=== PATIENT | female | born 1975 | race Caucasian/White ===

== ENCOUNTER 2016-06-24 13:12 | Emergency (ER) | payer MEDICARE, MEDICAID ==
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
[2016-06-24] MEDS ORDERED: PROMETHAZINE HCL 25 MG/ML VIAL IM ONE ×2 (13:47→16:42)
[2016-06-24] MEDS ORDERED: HYDROMORPHONE HCL 2 MG/ML VIAL IM ONE (13:47)
== END 2016-06-24 16:54 | disposition home or self-care (01) ==
LOC: ER 13:12
DX: G43.909 Migraine, unspecified, not intractable, without status migrainosus (principal); R11.0 Nausea; H53.149 Visual discomfort, unspecified
CPT/HCPCS: 99283 ×2; 96372; J1170; J2550

== ENCOUNTER 2016-09-02 18:28 | Emergency (ER) | payer MEDICARE, MEDICAID ==
[2016-09-02] MEDS: ONDANSETRON 4 MG ODT TABLET SL ONE (20:24)
[2016-09-02] MEDS: IBUPROFEN 600 MG TABLET PO ONE (20:24)
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
[2016-09-02 20:43] LABS: BASO % 0.3 % (0-6); EOS % 4.6 % (0-6); GRAN % 48.5 % (47-80); HEMATOCRIT 40.4 % (35.0-47.0); HEMOGLOBIN 12.8 gm/dl (11.6-16.0); LYMPH % 38.5 % (16-45); MEAN CELL VOLUME 92.4 fl (81-97); MEAN CORPUSCULAR HEMOGLOBIN 29.3 pg (27-33); MEAN CORPUSCULAR HGB CONC 31.7 g/dl (32-36); MEAN PLATELET VOLUME 10.5 fl (7.4-10.4); MONO % 8.1 % (0-9); PLATELET COUNT 250 K/uL (130-400); RED BLOOD COUNT 4.37 M/uL (3.80-5.40); RED CELL DISTRIBUTION WIDTH 12.4 % (11.5-14.5); URINE APPEARANCE CLEAR; URINE BILIRUBIN NEGATIVE (NEGATIVE); URINE BLOOD LARGE (NEGATIVE); URINE COLOR YELLOW; URINE GLUCOSE (UA) NEGATIVE (NEGATIVE); URINE KETONE NEGATIVE (NEGATIVE); URINE LEUKOCYTE ESTERASE NEGATIVE (NEGATIVE); URINE NITRITE NEGATIVE (NEGATIVE); URINE PROTEIN NEGATIVE (NEGATIVE); URINE UROBILINOGEN 0.2 E.U./dL (0.20 - 1.00); WHITE BLOOD COUNT W/O DIFF 7.5 K/uL (4.2-12.2)
[2016-09-02 20:53] LABS: URINE EPITHELIAL CELLS 0 - 2 (FEW); URINE RBC 21 - 35 (NONE SEEN); URINE WBC 0 - 2 (0-2/hpf)
[2016-09-02 20:54] LABS: URINE CALCIUM OXALATE CRYSTALS 3+ /hpf
[2016-09-02 20:56] LABS: ALBUMIN 3.9 gm/dL (3.5-5.0); ALKALINE PHOSPHATASE 73 U/L (38-126); ALT/SGPT 23 U/L (9-52); ANION GAP 8.5 (7-16); AST/SGOT 15 U/L (14-36); BILIRUBIN,TOTAL 0.67 mg/dL (0.2-1.3); BLOOD UREA NITROGEN 18 mg/dL (7-17); CARBON DIOXIDE 28.5 mmol/L (22-30); CREATININE 0.8 mg/dL (0.52-1.04); EST GLOMERULAR FILTRATION RATE > 60 ml/min; GLUCOSE,RANDOM 104 mg/dL (70-110); LIPASE 50 U/L (23-300); TOTAL PROTEIN 7.2 gm/dL (6.3-8.2)
[2016-09-02 21:18] LABS: URINE APPEARANCE CLEAR; URINE BILIRUBIN SMALL (NEGATIVE); URINE BLOOD LARGE (NEGATIVE); URINE COLOR YELLOW; URINE GLUCOSE (UA) NEGATIVE (NEGATIVE); URINE KETONE NEGATIVE (NEGATIVE); URINE LEUKOCYTE ESTERASE NEGATIVE (NEGATIVE); URINE NITRITE NEGATIVE (NEGATIVE); URINE PROTEIN TRACE (NEGATIVE); URINE UROBILINOGEN 0.2 E.U./dL (0.20 - 1.00)
== END 2016-09-02 22:00 | disposition home or self-care (01) ==
LOC: ER 18:28
DX: R10.31 Right lower quadrant pain (principal); R31.29 Other microscopic hematuria; R11.0 Nausea
CPT/HCPCS: 80048; 80076; 81001; 81003; 83690; 85025; 99283; 99284

== ENCOUNTER 2017-02-23 12:44 | Emergency (ER) | payer MEDICARE, MEDICAID ==
[2017-02-23] MEDS ORDERED: 0.9 % SODIUM CHLORIDE 1,000 ML BAG IV ONE ×2 (13:06→15:21)
[2017-02-23] MEDS ORDERED: PROMETHAZINE HCL 12.5 MG in 0.9 % SODIUM CHLORIDE 100ML 100 ML IVPB ONE (13:07)
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
[2017-02-23 13:57] LABS: BASO % 0.3 % (0-6); EOS % 2.9 % (0-6); GRAN % 53.1 % (47-80); HEMATOCRIT 38.3 % (35.0-47.0); HEMOGLOBIN 12.4 gm/dl (11.6-16.0); LYMPH % 34.6 % (16-45); MEAN CELL VOLUME 87.8 fl (81-97); MEAN CORPUSCULAR HEMOGLOBIN 28.4 pg (27-33); MEAN CORPUSCULAR HGB CONC 32.4 g/dl (32-36); MEAN PLATELET VOLUME 10.7 fl (7.4-10.4); MONO % 9.1 % (0-9); PLATELET COUNT 251 K/uL (130-400); RED BLOOD COUNT 4.36 M/uL (3.80-5.40); RED CELL DISTRIBUTION WIDTH 12.4 % (11.5-14.5); WHITE BLOOD COUNT W/O DIFF 5.9 K/uL (4.2-12.2)
[2017-02-23 14:14] LABS: ALB/GLOB RATIO 1.1 (1.1-1.8); ALBUMIN 3.4 g/dL (4.0-5.0); ALKALINE PHOSPHATASE 52 U/L (35-104); ALT/SGPT 8 U/L (<33); AST/SGOT 13 U/L (10.0-35.0); BLOOD UREA NITROGEN 12 mg/dL (6-20); CREATININE 0.6 mg/dL (0.5-0.9); EST GLOMERULAR FILTRATION RATE > 60 mL/min; GLUCOSE,RANDOM 99 mg/dL (74-109); LIPASE 13 U/L (13-60); TOTAL PROTEIN 6.6 g/dL (6.6-8.7)
[2017-02-23 15:36] LABS: URINE APPEARANCE SL CLOUDY; URINE BILIRUBIN NEGATIVE (NEGATIVE); URINE BLOOD TRACE-I (NEGATIVE); URINE COLOR YELLOW; URINE GLUCOSE (UA) NEGATIVE (NEGATIVE); URINE KETONE NEGATIVE (NEGATIVE); URINE LEUKOCYTE ESTERASE SMALL (NEGATIVE); URINE NITRITE NEGATIVE (NEGATIVE); URINE PROTEIN NEGATIVE (NEGATIVE); URINE UROBILINOGEN 0.2 E.U./dL (0.20 - 1.00)
[2017-02-23 15:44] LABS: URINE RBC 0 - 2 (NONE SEEN)
[2017-02-23 16:23] LABS: URINE APPEARANCE CLEAR; URINE BILIRUBIN NEGATIVE (NEGATIVE); URINE COLOR YELLOW; URINE GLUCOSE (UA) NEGATIVE (NEGATIVE); URINE KETONE NEGATIVE (NEGATIVE)
[2017-02-23 16:24] LABS: URINE BLOOD NEGATIVE (NEGATIVE); URINE NITRITE NEGATIVE (NEGATIVE); URINE PROTEIN NEGATIVE (NEGATIVE); URINE UROBILINOGEN 0.2 E.U./dL (0.20 - 1.00)
[2017-02-23 16:26] LABS: URINE LEUKOCYTE ESTERASE NEGATIVE (NEGATIVE)
--- NOTE | 2017-02-25 08:21 | CT SCAN REPORT ---
EXAM: CT OF THE ABDOMEN AND PELVIS WITHOUT CONTRAST HISTORY: ABDOMEN AND BILATERAL FLANK PAIN WITH DYSURIA. FEVER AND VOMITING. PRIOR CHOLECYSTECTOMY AND HYSTERECTOMY. TECHNIQUE: Thin collimation helical CT examination of the abdomen and pelvis was performed without oral or intravenous contrast administration. Lack of oral and IV contrast utilization limits evaluation of the solid viscera and bowel respectively. Comparison: CT of the abdomen and pelvis without contrast dated 12/24/15. FINDINGS: Increased image noise due to large body habitus also limits evaluation. The lung bases are clear and there is no pleural or pericardial effusion. The heart is not enlarged. No focal abnormality is demonstrated within the liver, spleen, pancreas, nor adrenal glands. The gallbladder is surgically absent and no biliary ductal dilatation is seen. The kidneys are normal in size, position, and are smoothly marginated. There are questionably four or five tiny nonobstructing calculi within the right kidney with the largest measuring approximately 2-3 mm. There are a couple tiny 2 mm nonobstructing calculi within the left kidney, one in the mid to lower level and the other in the lower pole. No other nephrolithiasis nor definite renal mass. The renal collecting systems are not dilated. No definite ureteral calculus. No intrinsic urinary bladder abnormality. Small round calcifications in the inferior pelvis are redemonstrated consistent with phleboliths. The uterus is surgically absent as are the ovaries. No new pelvic mass, lymphadenopathy, or free pelvic fluid. No gross bowel dilatation nor bowel wall thickening. The appendix is visualized and normal in appearance. There is no evidence of aneurysm of the abdominal aorta nor iliac arteries. No intraabdominal nor retroperitoneal lymphadenopathy. There are mild degenerative changes scattered throughout the visualized spine. IMPRESSION: 1. EXAM LIMITED BY INCREASED IMAGE NOISE DUE TO LARGE BODY HABITUS. 2. BILATERAL NEPHROLITHIASIS WITHOUT EVIDENCE OF OBSTRUCTIVE UROPATHY. 3. NO DEFINITE CT EVIDENCE OF AN ACUTE INTRAABDOMINAL NOR INTRAPELVIC PROCESS. 4. STATUS POST CHOLECYSTECTOMY AND HYSTERECTOMY. 5. NOT MENTIONED ABOVE IS APPARENT BORDERLINE TO MILD WALL THICKENING OF THE DISTAL ESOPHAGUS LIKELY DUE TO INCOMPLETE DISTENTION RATHER THAN A MUCOSAL ABNORMALITY. JOB NUMBER: [id number] [facility]
== END 2017-02-23 16:58 | disposition home or self-care (01) ==
LOC: ER 12:44
DX: R10.32 Left lower quadrant pain (principal); R11.2 Nausea with vomiting, unspecified; M54.2 Cervicalgia; R34 Anuria and oliguria; Z79.899 Other long term (current) drug therapy
CPT/HCPCS: 99284 ×2; 96374; 83690; 85025; 80053; 81001; 81003; 74176; G0480; 80329; J2550; J7030

== ENCOUNTER 2017-10-03 11:43 | Emergency (ER) | payer MEDICARE, OTHER ==
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
[2017-10-03] MEDS ORDERED: Diph,Pert(Acell),Tet Vac 0.5 ML SYR IM ONE (12:12)
== END 2017-10-03 13:16 | disposition home or self-care (01) ==
LOC: ER 11:43
DX: S61.012A Laceration without foreign body of left thumb without damage to nail, initial encounter (principal); W45.8XXA Other foreign body or object entering through skin, initial encounter; Y93.G1 Activity, food preparation and clean up; Y92.511 Restaurant or cafe as the place of occurrence of the external cause; Y99.0 Civilian activity done for income or pay; Z87.891 Personal history of nicotine dependence
CPT/HCPCS: 12001; 90715; 96372; 99283

== ENCOUNTER 2017-10-25 11:02 | Emergency (ER) | payer MEDICARE, OTHER ==
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
[2017-10-25] MEDS: LORAZEPAM 2 MG/ML VIAL IV ONE (11:48)
[2017-10-25] MEDS: 0.9 % SODIUM CHLORIDE 1,000 ML BAG IV ONE (11:49)
[2017-10-25] MEDS: PROMETHAZINE HCL 12.5 MG in 0.9 % SODIUM CHLORIDE 100ML 100 ML IVPB ONE (11:49)
[2017-10-25] MEDS: METOCLOPRAMIDE HCL 10 MG/2 ML VIAL IVP ONE (11:49)
[2017-10-25 12:50] LABS: BLOOD UREA NITROGEN 13 mg/dL (6-20)
[2017-10-25 12:51] LABS: CREATININE 0.6 mg/dL (0.5-0.9); EST GLOMERULAR FILTRATION RATE > 60 mL/min
[2017-10-25 12:53] LABS: GLUCOSE,RANDOM 106 mg/dL (74-109)
[2017-10-25 12:56] LABS: CREATINE PHOSPHOKINASE 64 U/L (26-192)
[2017-10-25 13:10] LABS: BASO % 0.2 % (0-6); GRAN % 64.1 % (47-80); HEMATOCRIT 42.1 % (35.0-47.0); LYMPH % 26.8 % (16-45); MEAN CORPUSCULAR HGB CONC 30.9 g/dl (32-36); MEAN PLATELET VOLUME 10.9 fl (7.4-10.4); MONO % 5.9 % (0-9); PLATELET COUNT 222 K/uL (130-400); RED BLOOD COUNT 4.48 M/uL (3.80-5.40); RED CELL DISTRIBUTION WIDTH 13.1 % (11.5-14.5); WHITE BLOOD COUNT W/O DIFF 5.6 K/uL (4.2-12.2)
[2017-10-25 13:27] LABS: CKMB < 1.0 ng/mL (<3.77)
[2017-10-25] MEDS: ASPIRIN 325 MG TABLET PO ONE (13:41)
[2017-10-25] MEDS: METHYLPREDNISOLONE PF 125MG/VIAL IVP ONE (13:41)
--- NOTE | 2017-10-26 11:04 | CT SCAN REPORT ---
EXAM: CT OF THE BRAIN HISTORY: MIGRAINE. TECHNIQUE: CT of the brain without contrast was obtained. Comparison: Prior CT of the brain 05/19/16. FINDINGS: The globes are intact. The paranasal sinuses and mastoid air cells are unremarkable. No displaced or depressed skull fracture. No intra or extraaxial hemorrhage. CT is limited for evaluation of acute infarct. No CT evidence for large or territorial acute infarct. No mass or midline shift. IMPRESSION: NEGATIVE EXAMINATION. JOB NUMBER: [id number] [facility]
--- NOTE | 2017-10-26 11:06 | RADIOLOGY REPORT ---
EXAM: CHEST, TWO VIEWS HISTORY: DIZZINESS. TECHNIQUE: Frontal and lateral views of the chest were obtained. Comparison: Prior chest 08/15/15. FINDINGS: The heart size is stable. Mild elevation of the right hemidiaphragm. The lungs are clear. No pneumothorax. IMPRESSION: NO ACUTE CARDIOPULMONARY PROCESS. JOB NUMBER: [id number] [facility]
== END 2017-10-25 14:19 | disposition left against medical advice (07) ==
LOC: ER 11:02
DX: G43.909 Migraine, unspecified, not intractable, without status migrainosus (principal); R11.10 Vomiting, unspecified; Z87.891 Personal history of nicotine dependence; E03.9 Hypothyroidism, unspecified; R29.810 Facial weakness
CPT/HCPCS: 70450; 71046; 80048; 82550; 82553; 84484; 85025; 93005; 93010; 96365; 96375; 99284; J2550; J2765; J2930; J7030

== ENCOUNTER 2017-12-21 10:32 | Observation (INO) | payer MEDICARE ==
[2017-12-21] MEDS ORDERED: ONDANSETRON HCL IV 4 MG/2 ML VIAL IV ONE (10:59)
[2017-12-21] MEDS ORDERED: 0.9 % SODIUM CHLORIDE 1,000 ML BAG IV ONE (10:59)
[2017-12-21 11:29] LABS: URINE APPEARANCE CLEAR; URINE BILIRUBIN MODERATE (NEGATIVE); URINE BLOOD TRACE-I (NEGATIVE); URINE COLOR YELLOW; URINE GLUCOSE (UA) NEGATIVE (NEGATIVE); URINE KETONE 15 mg/dL (NEGATIVE); URINE LEUKOCYTE ESTERASE TRACE (NEGATIVE); URINE NITRITE NEGATIVE (NEGATIVE)
[2017-12-21 11:38] LABS: URINE MUCUS LIGHT; URINE RBC 0 - 2 (NONE SEEN); URINE WBC 0 - 2 (0-2/hpf)
[2017-12-21 11:57] LABS: CRYPTOSPORIDIUM PARVUM ANTIGEN NOT DETECTED (NOT DETECT); GIARDIA LAMBLIA ANTIGEN NOT DETECTED (NOT DETECT); ROTOVIRUS NOT DETECTED (NOT DETECT)
[2017-12-21 12:33] LABS: HEMATOCRIT 41.1 % (35.0-47.0); MEAN CELL VOLUME 90.9 fl (81-97); MEAN CORPUSCULAR HEMOGLOBIN 28.8 pg (27-33); MEAN CORPUSCULAR HGB CONC 31.6 g/dl (32-36); MEAN PLATELET VOLUME 11.1 fl (7.4-10.4); PLATELET COUNT 147 K/uL (130-400); RED BLOOD COUNT 4.52 M/uL (3.80-5.40); WHITE BLOOD COUNT W/O DIFF 7.4 K/uL (4.2-12.2)
[2017-12-21 12:47] LABS: BLOOD UREA NITROGEN 14 mg/dL (6-20); CREATININE 0.9 mg/dL (0.5-0.9); EST GLOMERULAR FILTRATION RATE > 60 mL/min; PLATELET ESTIMATE NORMAL (NORMAL)
[2017-12-21 12:48] LABS: TOTAL PROTEIN 6.9 g/dL (6.6-8.7)
[2017-12-21 12:50] LABS: GLUCOSE,RANDOM 93 mg/dL (74-109)
[2017-12-21 12:53] LABS: ALBUMIN 3.4 g/dL (4.0-5.0); ALKALINE PHOSPHATASE 48 U/L (35-104); ALT/SGPT 10 U/L (<33); AST/SGOT 18 U/L (10.0-35.0); LIPASE 14 U/L (13-60)
[2017-12-21] MEDS ORDERED: POTASSIUM CHLORIDE 20 MEQ TABLET PO ONE (13:01)
[2017-12-21] MEDS ORDERED: METHYLPREDNISOLONE PF 125MG/VIAL IVP ONE (13:06)
[2017-12-21] MEDS ORDERED: HYDROCODONE/APAP 5/325MG TABLET PO ONE (13:11)
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
[2017-12-21] MEDS ORDERED: ACETAMINOPHEN 1,000 MG/100 ML BTL IVPB ONE (13:14)
[2017-12-21 13:26] LABS: MOLECULAR C DIFF TOXIN SCREEN NOT DETECTED (NOT DETECT)
[2017-12-21] MEDS ORDERED: CLINDAMYCIN 600MG/50ML PREMIX 600 MG/50 ML BAG IVPB ONE (14:23)
[2017-12-21] MEDS ORDERED: ACETAZOLAMIDE 125 MG PO PRN (16:23)
[2017-12-21] MEDS ORDERED: ONDANSETRON HCL IV 4 MG/2 ML VIAL IVP PRN (16:23)
[2017-12-21] MEDS ORDERED: ALPRAZOLAM 0.25 MG TABLET PO SCH (16:23)
[2017-12-21] MEDS ORDERED: FLUOXETINE HCL 40 MG PO SCH (16:23)
[2017-12-21] MEDS ORDERED: ACETAMINOPHEN 500 MG TABLET PO PRN (16:23)
[2017-12-21] MEDS ORDERED: PROMETHAZINE HCL 25 MG SUPP RC PRN (16:23)
[2017-12-21] MEDS ORDERED: METHYLPREDNISOLONE PF 125MG/VIAL IVP SCH (16:23)
[2017-12-21] MEDS ORDERED: CLINDAMYCIN 600MG/50ML PREMIX 600 MG/50 ML BAG IVPB SCH (16:23)
[2017-12-21] MEDS: SOD CHLOR 0.9% WITH KCL 40MEQ 40 MEQ/1,000 ML IV.SOLN IV SCH (16:44)
[2017-12-21] MEDS: OXYCODONE/APAP 10MG-325MG TABLET PO SCH ×2 (17:17→23:15)
[2017-12-21] MEDS ORDERED: ASENAPINE MALEATE 10 MG SL SCH (22:00)
[2017-12-21] MEDS: ALPRAZOLAM 0.25 MG TABLET PO SCH (22:07)
[2017-12-21] MEDS: METHYLPREDNISOLONE PF 125MG/VIAL IVP SCH (22:09)
[2017-12-21] MEDS: CLINDAMYCIN 600MG/50ML PREMIX 600 MG/50 ML BAG IVPB SCH (22:11)
[2017-12-21] MEDS: PROPRANOLOL HCL 10 MG TABLET PO SCH (22:18)
[2017-12-22] MEDS: SOD CHLOR 0.9% WITH KCL 40MEQ 40 MEQ/1,000 ML IV.SOLN IV SCH (02:43)
[2017-12-22] MEDS: METHYLPREDNISOLONE PF 125MG/VIAL IVP SCH (05:52)
[2017-12-22] MEDS: OXYCODONE/APAP 10MG-325MG TABLET PO SCH (05:53)
[2017-12-22] MEDS: ALPRAZOLAM 0.25 MG TABLET PO SCH (05:53)
[2017-12-22] MEDS: CLINDAMYCIN 600MG/50ML PREMIX 600 MG/50 ML BAG IVPB SCH (05:58)
[2017-12-22 06:47] LABS: HEMATOCRIT 40.8 % (35.0-47.0); HEMOGLOBIN 12.9 gm/dl (11.6-16.0); MEAN CELL VOLUME 90.7 fl (81-97); MEAN CORPUSCULAR HEMOGLOBIN 28.7 pg (27-33); MEAN CORPUSCULAR HGB CONC 31.6 g/dl (32-36); MEAN PLATELET VOLUME 11.3 fl (7.4-10.4); PLATELET COUNT 163 K/uL (130-400); RED CELL DISTRIBUTION WIDTH 13.9 % (11.5-14.5); WHITE BLOOD COUNT W/O DIFF 5.6 K/uL (4.2-12.2)
[2017-12-22] MEDS ORDERED: PANTOPRAZOLE SODIUM 40 MG TABLET PO PRN (07:00)
[2017-12-22] MEDS ORDERED: LEVOTHYROXINE SODIUM 100 MCG TABLET PO SCH (07:00)
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
[2017-12-22 07:30] LABS: ALBUMIN 3.4 g/dL (4.0-5.0); ALKALINE PHOSPHATASE 48 U/L (35-104); ALT/SGPT 9 U/L (<33); AST/SGOT 13 U/L (10.0-35.0); BLOOD UREA NITROGEN 17 mg/dL (6-20); CREATININE 0.7 mg/dL (0.5-0.9); EST GLOMERULAR FILTRATION RATE > 60 mL/min; GLUCOSE,RANDOM 234 mg/dL (74-109); TOTAL PROTEIN 6.7 g/dL (6.6-8.7)
[2017-12-22] MEDS: PROPRANOLOL HCL 10 MG TABLET PO SCH (09:40)
[2017-12-22] MEDS ORDERED: FLUOXETINE HCL 20 MG CAPSULE PO SCH (10:00)
[2017-12-22] MEDS ORDERED: ENOXAPARIN 40 MG/0.4 ML SYR SQ SCH (10:00)
[2017-12-22] MEDS ORDERED: ASENAPINE MALEATE 5 MG SL SCH (10:00)
--- NOTE | 2017-12-22 10:16 | Discharge Summary ---
Providers Discharge Summary Date: 12/22/17 Date of admission: 12/21/17 16:05 Expected Date of Discharge: 12/22/17 Attending physician: KINGSLEY CHAVEZ Primary care physician: DIXIE VAUGHAN M.D. Physical Exam - Vital Signs Vital Signs: Vital Signs - Last 24 Hrs Temp Pulse Pulse Resp BP BP Pulse Ox 12/22/17 06:00 97.7 F 63 20 106/68 95 12/22/17 01:00 97.5 F L 61 20 93/54 94 L 12/21/17 21:00 82 18 12/21/17 20:46 97.7 F 82 18 114/68 95 12/21/17 18:32 96 H 18 12/21/17 16:15 98.1 F 96 H 18 111/80 99 12/21/17 14:34 99.6 F 87 16 110/42 95 12/21/17 13:08 100.2 F H 95 H 20 102/58 99 12/21/17 10:35 97.9 F 124 H 18 120/101 99 - General General Appearance: Alert, Oriented x3, Cooperative, No acute distress Limitations: No limitations - Head Head exam: Atraumatic, Normocephalic, Normal inspection - Eye Eye exam: Normal appearance, PERRL, EOMI Pupils: Normal accommodation - ENT ENT exam: Normal exam, Mucous membranes dry, Normal external ear exam, Normal orophraynx Ear exam: Normal external inspection. negative: External canal tenderness Nasal Exam: Normal inspection. negative: Discharge, Sinus tenderness Mouth exam: Normal external inspection, Tongue normal Teeth exam: Normal inspection. negative: Dental caries Throat exam: Normal inspection. negative: Tonsillar erythema, Tonsillar exudate - Neck Neck exam: Normal inspection, Full ROM. negative: Tenderness - Respiratory Respiratory exam: Normal lung sounds bilaterally. negative: Respiratory distress - Cardiovascular Cardiovascular Exam: Regular rate, Normal rhythm, Normal heart sounds Peripheral Pulses: 2+: Radial (R), Radial (L), Dorsalis Pedis (R), Dorsalis Pedis (L) - GI/Abdominal GI/Abdominal exam: Soft, Normal bowel sounds. negative: Tenderness - Rectal Rectal exam: Deferred - exam: Deferred - Extremities Extremities exam: Normal inspection, Full ROM, Normal capillary refill. negative: Pedal edema, Tenderness - Back Back exam: Reports: Normal inspection, Full ROM. Denies: Muscle spasm, Rash noted, Tenderness - Neurological Neurological exam: Alert, Normal gait, Oriented X3 - Psychiatric Psychiatric exam: Normal affect, Normal mood - Skin Skin exam: Dry, Intact, Normal color, Rash (buttocks, erythema improved, no eruptions or lesions noted), Warm Hospitalization - Hospitalization Admission Diagnosis: dehydration, vomiting , diarrhea, hypokalemia, cellulitis vs allergic rxn - Problem List/Discharge Diagnosis (1) Nausea vomiting and diarrhea Current Visit: Yes Status: Acute Base Code: R11.2 - NAUSEA WITH VOMITING, UNSPECIFIED; R19.7 - DIARRHEA, UNSPECIFIED Comment: 12/22/17: Patient presented to ED for nausea/vomiting/diarrhea and abdominal pain x 3 days -Pelvis CT negative -Stool cultures negative -BMP, CBC reviewed today, K+ improved at 4.8 -IV fluids NS with 40mEq K+ dc -Tolerating oral diet -Zofran prn (2) Cellulitis of buttock Current Visit: Yes Status: Acute Base Code: L03.317 - CELLULITIS OF BUTTOCK Comment: 12/22/17: Patient presented to ED with erythematous rash on buttocks that began 2 days ago. No known aggrivating factors, no history of cellulitis. Afebrile, WBC WNL. -Erythema improving today -Clindamycin 600mg IVPB q8h -Solumderol 60mg q8h dc (3) Dehydration Current Visit: Yes Status: Acute Base Code: E86.0 - DEHYDRATION Comment: : Dehydration due to vomiting x 3 days prior to admission -Zofran prn -IV fluids dc -Tolerating PO diet (4) Hypokalemia Current Visit: Yes Status: Acute Base Code: E87.6 - HYPOKALEMIA Comment: : Potassium in ED 3.1. Received 40mEq K+ PO and NS with 40mEq K+. -K+ 4.8 today -Advance diet as tolerated -All potassium replacements stopped (5) DVT prophylaxis Current Visit: Yes Status: Acute Base Code: [id number] - Comment: 12/22/17: Moderate risk due to hospitalization and decreased mobility -Lovenox 40mg SQ daily -Will dc upon discharge as patient will resume normal activity (6) Full code status Current Visit: Yes Status: Acute Base Code: Z78.9 - OTHER SPECIFIED HEALTH STATUS Comment: 12/22/17: Full code status this admission - Hospitalization Course Disposition: Home, Self-Care Hospital Course: 42 year old female presents to ED for complaints of vomiting and diarrhea x 3 days. She also complains of a rash she noted on her buttocks x 2 days. Patient reported generalized abdominal pain, and intermittent episodes of fever and chills. Patient continued to have episodes of diarrhea while in the ED. States she noted the rash 2 days ago which seems not to have spread or gotten worse. Reports a burning discomfort in the area. Patient's past medical history includes: cota's palsy, kidney stones, hypothyroidism, chronic migraines, gastric ulcer, chronic back pain, anxiety, and depression. ED Course: VS: Temp 100.2, HR 124, Pulse ox 99%, RR 20, BP 102/58 UA positive for protein, ketones, blood, and trace leukocytes Labs: K+ 3.1, WBC indicated left shift Stool cultures pending Pelvis CT negative for acute process Received Clindamycin IVPB and Solumedrol 120mg (cellulitis vs. allergic rxn on buttocks) PCP: Alexus 12/21/17: Patient resting comfortably in bed, A&O x 4. Patient tolerating PO medications and ice chips at this time. Reports last bowel movement was in ED. Denies abdominal pain at this time. Rash on buttocks area assessed, appears with surrounding redness and bruising, area marked. Patient reports burning sensation on area. Will continue treating with IV fluids, zofran, clindamycin, and Solumedrol. 12/22/17: Patient A&O x 4, resting comfortably on edge of bed. Patient has been tolerating oral diet. Denies nausea or vomiting, has had occasional diarrhea. Cellulitis has improved on buttocks, erythema decreased compared to yesterday. Will dc patient home on Clindamycin. Patient is scheduled to follow-up with PCP on Wednesday. Procedures: Imaging and X-Rays 12/21/17 11:08 PELVIS WO CONTRAST [CT] Stat Abnormal Labs: Abnormal Lab Results 12/21/17 12/21/17 12/21/17 Range/Units 11:25 12:34 12:34 MCHC 31.6 L (32-36) g/dl MPV 11.1 H (7.4-10.4) fl Neutrophils % 89.0 H (47-80) % Lymphocytes 10.0 L (16-45) % ESR (0-20) mm/hr Potassium 3.1 L (3.4-4.5) mmol/L Carbon Dioxide 21.0 L (22-29) mmol/L Anion Gap 18.0 H (7-16) Random Glucose (74-109) mg/dL Calcium (8.6-10.0) mg/dL Albumin 3.4 L (4.0-5.0) g/dL Albumin/Globulin Ratio 1.0 L (1.1-1.8) Urine Protein 30 mg/dl H (NEGATIVE) Urine Ketones 15 mg/dl H (NEGATIVE) Urine Bilirubin Moderate H (NEGATIVE) Ur Leukocyte Esterase Trace H (NEGATIVE) 12/21/17 12/22/17 12/22/17 Range/Units 12:34 06:21 06:21 MCHC 31.6 L (32-36) g/dl MPV 11.3 H (7.4-10.4) fl Neutrophils % 82.0 H (47-80) % Lymphocytes 12.0 L (16-45) % ESR 62 H (0-20) mm/hr Potassium 4.8 H (3.4-4.5) mmol/L Carbon Dioxide 20.0 L (22-29) mmol/L Anion Gap (7-16) Random Glucose 234 H (74-109) mg/dL Calcium 8.5 L (8.6-10.0) mg/dL Albumin 3.4 L (4.0-5.0) g/dL Albumin/Globulin Ratio 1.0 L (1.1-1.8) Urine Protein (NEGATIVE) Urine Ketones (NEGATIVE) Urine Bilirubin (NEGATIVE) Ur Leukocyte Esterase (NEGATIVE) Condition at Discharge: (2) Stable VTE Discharge VTE Reason For No Overlap Therapy: Not Indicated Discharge Medications - Discharge Medications Prescriptions: Clindamycin HCl 300 mg PO Q6H #36 capsule Nystatin 1 apply TP BID PRN #60 gm PRN Reason: yeast rash on abdomen Home Medications: Ambulatory Orders Levothyroxine Sodium [Synthroid] 300 mcg PO DAILY 09/12/13 [Last Taken 2 Days Ago ~12/19/17] Propranolol HCl [Inderal] 80 mg PO BID 09/12/13 [Last Taken 2 Days Ago ~12/19/17 ] Promethazine HCl [Phenergan Supp] 25 mg RC TID PRN 03/21/14 [Last Taken 2 Days Ago ~12/19/17] Alprazolam [Xanax] 0.5 mg PO Q8H 01/31/15 [Last Taken 2 Days Ago ~12/19/17] Acetazolamide 125 mg PO BID PRN 08/31/15 [Last Taken 2 Days Ago ~12/19/17] Cholecalciferol (Vitamin D3) [Vitamin D3] 50,000 unit PO WEEKLY 03/10/16 [Last Taken 2 Days Ago ~12/19/17] Cyanocobalamin (Vitamin B-12) [Vitamin B-12] 400 mcg PO DAILY 03/10/16 [Last Taken 2 Days Ago ~12/19/17] Asenapine Maleate [Saphris] 5 mg SL QAM 06/24/16 [Last Taken 2 Days Ago ~] Asenapine Maleate [Saphris] 10 mg SL QHS 06/24/16 [Last Taken 2 Days Ago ~] Meclizine HCl [Antivert] 25 mg PO Q8H PRN 02/23/17 [Last Taken 2 Days Ago ~12/19] Omeprazole [Prilosec] 40 mg PO DAILY 02/23/17 [Last Taken 2 Days Ago ~12/19/17] Oxycodone HCl/Acetaminophen [Percocet 10mg/325mg] 1 tab PO Q6H PRN 02/23/17 [ Last Taken 2 Days Ago ~12/19/17] Fluoxetine HCl [Prozac] 40 mg PO QD cap 08/20/17 [Last Taken 2 Days Ago ~] Clindamycin HCl 300 mg PO Q6H #36 capsule 12/22/17 [Last Taken Unknown] Nystatin 1 apply TP BID PRN #60 gm 12/22/17 [Last Taken Unknown] Discharge Plan - Discharge Instructions Activity at Discharge: Increase Activity as Tolerated Diet at Discharge: Advance to Usual Diet Additional Instructions: -Slowly advance your diet, starting with bland foods as tolerated -The antibiotic needs to be taken 4x a day for the next 9 days. Take with food to avoid upsetting your stomach. The last dose of antibiotic you received here was at 6am, so your next dose is due around noon. -Use nystatin powder as needed on the rash on your abdomen -Follow-up with Dr. Vaughan as scheduled this Wednesday Quality Measures - Quality Measures Quality Measures: Documentation of Current Medications in Medical Record, Screening for High Blood Pressure and F/U Documented - Current Medications Quality Measure: Measure #130: Documentation of Current Medications Documentation of Current Medications: <Current Medications Documented/Reviewed> [[id number]] - Blood Pressure Screening Quality Measure: Screening for High Blood Pressure and Follow-Up Documented Does Patient Have Any of the Following: Active Dx of HTN Blood Pressure Classification: Hypertensive Reading Systolic Measurement: 120 Diastolic Measurement: 101 Screening for High Blood Pressure: Patient Exclusion, Hx of HTN [G9744] - Elder Abuse Suspicion Index EASI Reference Information: Mirela BISHOP, Benjamin C, Peri D, Jus Jean-Baptiste.Development and validation of a tool to assist physicians identification of elder abuse: The Elder Abuse Suspicion Index (EASI ). Journal of Elder Abuse and Neglect, 2008; 20 (3): 276-300.
--- NOTE | 2017-12-22 12:41 | CT SCAN REPORT ---
EXAM: CT OF THE PELVIS WITHOUT CONTRAST HISTORY: RASH ENTIRE BUTTOCKS. HYSTERECTOMY. TECHNIQUE: Axial CT scan of the pelvis was performed without IV contrast. Comparison: Prior pelvic CT performed as part of an abdomen and pelvis CT dated 02/23/17. FINDINGS: The uterus is not identified consistent with the surgical history. No definite pelvic mass or adenopathy identified. No appendicitis evident. No free intraperitoneal air or free intraperitoneal fluid within the pelvis. Because of the patient's very large body habitus, lateral aspects of the soft tissues along both sides of the pelvis are not entirely included in the field of view, however, as seen, the subcutaneous tissues appear relatively unremarkable with no obvious abscess identified in the soft tissues and there is no prominent focal skin thickening identified. No abnormal air collection seen in the soft tissues. IMPRESSION: 1. POSTOP HYSTERECTOMY. 2. NONCONTRAST CT SCAN OF THE PELVIS APPEARS OTHERWISE ESSENTIALLY NEGATIVE. JOB NUMBER: [id number] MTDD
== END 2017-12-22 11:25 | disposition home or self-care (01) ==
LOC: ER 10:32 → MEDSURG 16:05
PROVIDERS: ADMIT Internal Medicine; ATTEND Internal Medicine
DX: E86.0 Dehydration (principal); E87.6 Hypokalemia; R19.7 Diarrhea, unspecified; L03.317 Cellulitis of buttock; E03.9 Hypothyroidism, unspecified; F41.8 Other specified anxiety disorders; F25.9 Schizoaffective disorder, unspecified; G51.0 Bell's palsy; H02.402 Unspecified ptosis of left eyelid; R29.810 Facial weakness; Z87.442 Personal history of urinary calculi; Z85.3 Personal history of malignant neoplasm of breast; Z87.891 Personal history of nicotine dependence
CPT/HCPCS: 72192; 80053; 81001; 82272; 83690; 85027; 85651; 87329; 87425; 87427; 87493; 89055; 96360; 96361; 96365; 96366; 99217; 99220; 99285; J2405; J2930; J7030